=== PATIENT | male | born 1980 | race Caucasian/White ===

== ENCOUNTER 2016-12-01 12:01 | Emergency (ER) | payer MEDICAID ==
--- NOTE | 2016-12-01 12:16 | Emergency Department Record ---
History of Present Illness - General Chief complaint: Extremity Problem Stated complaint: TOE INJURY Time Seen by Provider: 12/01/16 12:15 Source: Patient Mode of Arrival: Ambulatory Limitations: No limitations - History of Present Illness Initial comments: The patient is here due to injuring his R foot last evening. He banged it against a pole last evening and now it is quite painful with walking and very bruised. He denies any other issues. MD Complaint: Extremity pain Onset/Timin -: Days(s) Location: Right, Foot History of Same: No Severity scale (1-10): 1 Quality: Sharp Consistency: Intermittent Improves with: Immobilization Worsens with: Exertion, Palpation, Walking, Weight bearing Associated Symptoms: Denies other symptoms - Related Data Previous Rx's Medication Instructions Recorded Naproxen [Naprosyn] 250 mg PO BID #14 tablet 12/01/16 Allergies Allergy/AdvReac Type Severity Reaction Status Date / Time No Known Drug Allergies Allergy Verified 12/01/16 12:13 Travel Screening - Travel/Exposure Within Last 30 Days Have you traveled within the last 30 days?: No Review of Systems Constitutional: Denies: Chills, Fever Eyes: Denies: Eye discharge ENT: Denies: Congestion Respiratory: Denies: Cough, Dyspnea Past Medical History - SOCIAL HISTORY Smoking Status: Current every day smoker Alcohol Use: Heavy Drug Use Detail:: Marijuana - RESPIRATORY Hx Respiratory Disorders: No - CARDIOVASCULAR Hx Cardio Disorders: No - NEURO Hx Neuro Disorders: No - GI Hx GI Disorders: No - Hx Genitourinary Disorders: No - ENDOCRINE Hx Endocrine Disorders: No - MUSCULOSKELETAL Hx Musculoskeletal Disorders: No - PSYCH Hx Psych Problems: Yes Hx Anxiety: Yes - HEMATOLOGY/ONCOLOGY Hx Hematology/Oncology Disorders: No Family Medical History Any Significant Family History?: Yes Hx Diabetes: Father Physical Exam - General General Appearance: Alert, Oriented x3, Cooperative, No acute distress - Head Head exam: Atraumatic, Normocephalic, Normal inspection - Eye Eye exam: Normal appearance, PERRL - Extremities Extremities exam: Tenderness (There is diffuse distal foot tenderness.). negative: Normal inspection (The distal dorsal foot is bruised and discolored.) , Joint swelling Course Vital Signs 12/01/16 12:07 Temperature 97.6 F Pulse Rate 114 H Respiratory 20 Rate Blood Pressure 143/102 Pulse Ox 96 Medical Decision Making - Data Complexity MDM Data: X-Ray Ordered and/or Reviewed - Radiology Data Radiology results: Report reviewed (R foot: Nondisplaced fx's of the 2nd, 4th, and 5th toes. Neg MT fx's.) Disposition Disposition: Discharge Clinical Impression: Toes fractured Disposition: Home, Self-Care Condition: (1) Good Instructions: Toe Fracture (ED) Additional Instructions: Please ice and elevate the toes when possible. Use the shoe for 2-3 weeks. Please take Naprosyn for pain. Please see your PCP next week for recheck. Prescriptions: Naproxen [Naprosyn] 250 mg PO BID #14 tablet Forms: Patient Portal Access Time of Disposition: 12:57
[2016-12-01] MEDS ORDERED: NAPROXEN 250 MG TABLET PO ONE (12:47)
--- NOTE | 2016-12-03 13:26 | RADIOLOGY REPORT ---
EXAM: RIGHT FOOT HISTORY: PATIENT FELL AND TWISTED THE RIGHT FOOT. PAIN, SWELLING, AND BRUISING AT THE THIRD THROUGH FIFTH TOES. TECHNIQUE: Three views of the right foot were obtained. Comparison: None. FINDINGS: There is a nondisplaced transverse fracture within the proximal shaft of the fifth proximal phalanx. There is a minimally displaced oblique fracture within the proximal shaft of the fourth proximal phalanx. There is a nondisplaced oblique fracture within the mid to proximal shaft of the second middle phalanx. There is possible extension to the proximal articular surface along the medial corner. A nondisplaced intraarticular fracture is present at the base of the second distal phalanx medially. This extends to the proximal articular surface. There is no visible discreet fracture within the third toe. There are mild arthritic changes at the first interphalangeal joint. The remaining bones and joints of the foot appear normal. IMPRESSION: 1. NONDISPLACED INTRAARTICULAR FRACTURE AT THE MEDIAL CORNER OF THE SECOND DISTAL PHALANGEAL BASE. 2. NONDISPLACED OBLIQUE FRACTURE WITHIN THE MID TO PROXIMAL SHAFT OF THE SECOND MIDDLE PHALANX WITH POSSIBLE EXTENSION TO THE PROXIMAL ARTICULAR SURFACE. 3. MINIMALLY DISPLACED OBLIQUE FRACTURE WITHIN THE PROXIMAL SHAFT OF THE FOURTH PROXIMAL PHALANX. 4. NONDISPLACED TRANSVERSE FRACTURE WITHIN THE PROXIMAL SHAFT OF THE FIFTH PROXIMAL PHALANX. JOB NUMBER: [id number] [facility]
== END 2016-12-01 13:10 | disposition home or self-care (01) ==
LOC: ER 12:01
DX: S92.504A Nondisplaced unspecified fracture of right lesser toe(s), initial encounter for closed fracture (principal); W22.8XXA Striking against or struck by other objects, initial encounter
CPT/HCPCS: 99283

== ENCOUNTER 2017-04-30 14:07 | Inpatient (IN) | payer MEDICAID ==
[2017-04-30] MEDS ORDERED: LORAZEPAM 2 MG/ML VIAL IV ONE ×2 (14:37→16:27)
[2017-04-30] MEDS ORDERED: 0.9 % SODIUM CHLORIDE 1,000 ML BAG IV ONE ×2 (14:37→15:29)
[2017-04-30 14:45] LABS: HEMATOCRIT 35.9 % (42.0-52.0); HEMOGLOBIN 12.1 gm/dl (14.0-18.0); MEAN CELL VOLUME 101.7 fl (81-97); MEAN CORPUSCULAR HGB CONC 33.7 g/dl (32-36); MEAN PLATELET VOLUME 10.6 fl (7.4-10.4); PLATELET COUNT 230 K/uL (130-400); RED BLOOD COUNT 3.53 M/uL (4.40-5.70); RED CELL DISTRIBUTION WIDTH 16.5 % (11.5-14.5); WHITE BLOOD COUNT W/O DIFF 10.9 K/uL (4.2-12.2)
[2017-04-30 14:48] LABS: MEAN CORPUSCULAR HEMOGLOBIN 34.2 pg (27-33)
[2017-04-30 14:56] LABS: PLATELET ESTIMATE NORMAL (NORMAL)
[2017-04-30 14:58] LABS: ALB/GLOB RATIO 1.2 (1.1-1.8); ALBUMIN 4.4 gm/dL (3.5-5.0); ALKALINE PHOSPHATASE 240 U/L (38-126); ALT/SGPT 24 U/L (21-72); ANION GAP 19.5 (7-16); AST/SGOT 97 U/L (17-59); BILIRUBIN,TOTAL 1.17 mg/dL (0.2-1.3); BLOOD UREA NITROGEN 4 mg/dL (9-20); CARBON DIOXIDE 16.5 mmol/L (22-30); CREATININE 0.7 mg/dL (0.66-1.25); EST GLOMERULAR FILTRATION RATE > 60 ml/min; GLUCOSE,RANDOM 145 mg/dL (70-110); TOTAL PROTEIN 8.2 gm/dL (6.3-8.2)
[2017-04-30 14:59] LABS: ACETAMINOPHEN < 10.0 ug/mL (10.0-30.0); SALICYLATE < 1.0 mg/dL (2.8-20.0)
--- NOTE | 2017-04-30 15:10 | Emergency Department Record ---
History of Present Illness - General Chief Complaint: Seizures Stated Complaint: SEIZURE,ALCOHOL W/D Time Seen by Provider: 04/30/17 14:36 Source: Patient, Family Mode of Arrival: Wheelchair Limitations: No limitations - History of Present Illness Initial Comments: 36 yo male presents after having two seizures today. He has a history of alcohol abuse with alcohol withdrawal and withdrawal seizures prior. He was admitted to [facility] recently. No injury. His first withdrawal seizure was in 2014. His mental status returned to normal. No other current medical conditions. He drinks daily 6-8 beers occasionally drinking liquor as well. Last drink was 10pm. MD Complaint: Seizure Onset/Timin -: Minutes(s) Description of Episode: Loss of consciousness, Post-event confusion Duration of Episode: 2 -: Minutes(s) Witnessed: Yes - by bystander Trauma: No Seizure History: History of withdrawal seizures Place: Home Possible Precipitating Event: Alcohol withdrawal Associated Symptoms: Other Treatments Prior to Arrival: None - [place] Coma Scale Eye Response: (4) Open spontaneously Motor Response: (6) Obeys commands Verbal Response: (5) Oriented [place] Total: 15 - Related Data Home Medications Medication Instructions Recorded Confirmed Last Taken No Home Med [NO HOME MEDS] 04/30/17 04/30/17 Unknown Allergies Allergy/AdvReac Type Severity Reaction Status Date / Time No Known Drug Allergies Allergy Verified 04/30/17 14:26 Travel Screening - Travel/Exposure Within Last 30 Days Have you traveled within the last 30 days?: No Review of Systems Constitutional: Denies: Chills, Fever, Weakness Eyes: Reports: Other. Denies: Eye discharge ENT: Reports: Other (tongue abrasion). Denies: Congestion, Throat pain Respiratory: Denies: Cough Cardiovascular: Denies: Chest pain, Palpitations, Syncope Endocrine: Denies: Fatigue Gastrointestinal: Denies: Abdominal pain, Diarrhea, Nausea, Vomiting Genitourinary: Denies: Dysuria, Frequency, Hematuria Musculoskeletal: Denies: Arthralgia, Back pain, Joint swelling, Myalgia Skin: Denies: Bruising, Change in color, Rash Neurological: Reports: Seizure. Denies: Confusion, Headache, Numbness, Tingling , Tremors, Vertigo, Weakness Psychiatric: Denies: Anxiety Hematological/Lymphatic: Denies: Blood Clots, Easy bleeding, Easy bruising, Swollen glands Past Medical History - SOCIAL HISTORY Smoking Status: Current every day smoker Alcohol Use: None, Heavy Drug Use: Heavy Drug Use Detail:: Marijuana - RESPIRATORY Hx Respiratory Disorders: No - CARDIOVASCULAR Hx Cardio Disorders: No - NEURO Hx Neuro Disorders: No - GI Hx GI Disorders: No - Hx Genitourinary Disorders: No - ENDOCRINE Hx Endocrine Disorders: No - MUSCULOSKELETAL Hx Musculoskeletal Disorders: No - PSYCH Hx Psych Problems: Yes Hx Anxiety: Yes Comment:: alcohol withdrawl/detox prior - HEMATOLOGY/ONCOLOGY Hx Hematology/Oncology Disorders: No Family Medical History Any Significant Family History?: No Hx Diabetes: Father Physical Exam - General General Appearance: Alert, Oriented x3, Cooperative, No acute distress Limitations: No limitations - Head Head exam: Atraumatic, Normocephalic, Normal inspection - Eye Eye exam: Normal appearance, PERRL. negative: Conjunctival injection, Periorbital swelling, Scleral icterus - ENT ENT exam: Normal exam, Mucous membranes moist, Normal orophraynx Ear exam: Normal external inspection. negative: External canal tenderness Nasal Exam: Normal inspection. negative: Discharge, Sinus tenderness Mouth exam: Other (small abrasion on the left). negative: Normal external inspection Teeth exam: Normal inspection. negative: Dental caries Throat exam: Normal inspection. negative: Tonsillar erythema, Tonsillar exudate - Neck Neck exam: Normal inspection, Full ROM. negative: Tenderness - Respiratory Respiratory exam: Normal lung sounds bilaterally. negative: Respiratory distress - Cardiovascular Cardiovascular Exam: Regular rate, Normal rhythm, Normal heart sounds Peripheral Pulses: 2+: Radial (R), Radial (L) - GI/Abdominal GI/Abdominal exam: Soft - Rectal Rectal exam: Deferred - exam: Deferred - Extremities Extremities exam: Normal inspection, Full ROM, Normal capillary refill. negative: Tenderness - Back Back exam: Reports: Normal inspection, Full ROM. Denies: Muscle spasm, Rash noted, Tenderness - Neurological Neurological exam: Alert, Normal gait, Oriented X3 - Psychiatric Psychiatric exam: Normal affect, Normal mood - Skin Skin exam: Dry, Intact, Normal color, Warm Course Vital Signs 04/30/17 04/30/17 14:16 14:59 Temperature 97.9 F Pulse Rate 110 H Pulse Rate [ 96 H [employer] ] Respiratory 20 16 Rate Blood Pressure 131/78 Blood Pressure 124/67 [Right Arm] Pulse Ox 96 96 - Reevaluation(s) Reevaluation #1: The labs were reviewed Midl decrease in HCO3 as expected after a seizure DC summary from [facility] obtained DC on 04/17/17 with recommendation of outpatient follow up 04/30/17 15:44 Reevaluation #2: I LIBRA Kendrick He will admit for alcohol withdrawal The patient is alert X's 3 no mental status changes Vitals stable for admission to [facility] on monitor with CIWA scale. 04/30/17 16:09 Medical Decision Making - Lab Data Result diagrams: 04/30/17 14:21 04/30/17 14:21 Lab Results 04/30/17 04/30/17 04/30/17 Range/Units 14:21 14:21 14:24 WBC 10.9 (4.2-12.2) K/uL RBC 3.53 L (4.40-5.70) M/uL Hgb 12.1 L (14.0-18.0) gm/dl Hct 35.9 L (42.0-52.0) % MCV 101.7 H (81-97) fl MCH 34.2 H (27-33) pg MCHC 33.7 (32-36) g/dl RDW 16.5 H (11.5-14.5) % Plt Count 230 (130-400) K/uL MPV 10.6 H (7.4-10.4) fl Neutrophils % 87.0 H (47-80) % Band Neutrophils % 2.0 (0-5) % Eosinophils % Not Reportable Basophils % Not Reportable Lymphocytes 9.0 L (16-45) % Monocytes 2.0 (0-9) % Platelet Estimate Normal (NORMAL) RBC Morphology Normal Sodium 141 (136-145) mmol/L Potassium 3.7 (3.5-5.1) mmol/L Chloride 105 (98-107) mmol/L Carbon Dioxide 16.5 L (22-30) mmol/L Anion Gap 19.5 H (7-16) BUN 4 L (9-20) mg/dL Creatinine 0.7 (0.66-1.25) mg/dL Estimated GFR > 60 ml/min Random Glucose 145 H (70-110) mg/dL Calcium 9.1 (8.5-10.1) mg/dL Magnesium 1.6 (1.6-2.3) mg/dL Total Bilirubin 1.17 (0.2-1.3) mg/dL AST 97 H (17-59) U/L ALT 24 (21-72) U/L Alkaline Phosphatase 240 H (38-126) U/L Total Protein 8.2 (6.3-8.2) gm/dL Albumin 4.4 (3.5-5.0) gm/dL Globulin 3.8 (1.4-4.8) gm/dL Albumin/Globulin Ratio 1.2 (1.1-1.8) Salicylates < 1.0 L (2.8-20.0) mg/dL Acetaminophen < 10.0 L (10.0-30.0) ug/mL Ethyl Alcohol 0.000 (0-0.010) g/dL Disposition Disposition: Admit Clinical Impression: Alcohol withdrawal seizure Qualifiers: Complication of substance-induced condition: uncomplicated Qualified Code(s): F10.230 - Alcohol dependence with withdrawal, uncomplicated Disposition: Still a Patient at [facility] Decision to Admit: Admit from ER Decision to Admit Date: 04/30/17 Decision to Admit Time: 16:05 Condition: (1) Good Forms: Patient Portal Access Time of Disposition: 16:05
[2017-04-30 15:37] LABS: AMPHETAMINE SCREEN URINE NOT DETECTED; BARBITURATE SCREEN URINE NOT DETECTED; BENZODIAZEPINE SCREEN URINE DETECTED; COCAINE SCREEN URINE NOT DETECTED; METHADONE SCREEN URINE NOT DETECTED; METHAMPHETAMINE SCREEN NOT DETECTED; OPIATE SCREEN URINE NOT DETECTED; OXYCODONE SCREEN URINE NOT DETECTED; PHENCYCLIDINE SCREEN URINE NOT DETECTED; PROPOXYPHENE SCREEN URINE NOT DETECTED; THC SCREEN URINE DETECTED; TRICYCLIC ANTIDEPRESSANT SCRN NOT DETECTED
[2017-04-30] MEDS ORDERED: ACETAMINOPHEN 500 MG TABLET PO PRN (17:14)
[2017-04-30] MEDS ORDERED: MVI, ADULT NO.4 WITH VIT K 10 ML, THIAMINE HCL IV 100 MG in 0.9 % SODIUM CHLORIDE 1000M... IV SCH ×3 (17:45)
[2017-04-30] MEDS ORDERED: CHLORDIAZEPOXIDE 25 MG CAPSULE PO ONE (18:34)
[2017-04-30] MEDS: NICOTINE 21 MG/24 HOUR PATCH TD SCH (18:51)
[2017-04-30] MEDS: CHLORDIAZEPOXIDE 25 MG CAPSULE PO SCH (21:59)
[2017-05-01] MEDS: 0.9 % SODIUM CHLORIDE 1000ML 1,000 ML IV PRN ×2 (01:35→10:04)
[2017-05-01 05:54] LABS: BASO % 0.2 % (0-6); EOS % 3.6 % (0-6); GRAN % 69.1 % (47-80); HEMATOCRIT 33.2 % (42.0-52.0); HEMOGLOBIN 10.9 gm/dl (14.0-18.0); LYMPH % 18.8 % (16-45); MEAN CELL VOLUME 103.4 fl (81-97); MEAN CORPUSCULAR HGB CONC 32.8 g/dl (32-36); MONO % 8.3 % (0-9); PLATELET COUNT 172 K/uL (130-400); RED BLOOD COUNT 3.21 M/uL (4.40-5.70); RED CELL DISTRIBUTION WIDTH 16.3 % (11.5-14.5); WHITE BLOOD COUNT W/O DIFF 5.3 K/uL (4.2-12.2)
[2017-05-01 05:55] LABS: MEAN CORPUSCULAR HEMOGLOBIN 33.9 pg (27-33)
[2017-05-01] MEDS: LORAZEPAM 2 MG/ML VIAL IV PRN ×2 (05:57→13:32)
[2017-05-01 06:04] LABS: INR 1.11; PROTHROMBIN TIME (PATIENT) 12.5 SECONDS (9.5-12.1)
[2017-05-01 06:06] LABS: ALB/GLOB RATIO 1.1 (1.1-1.8); ALBUMIN 3.5 gm/dL (3.5-5.0); ALKALINE PHOSPHATASE 173 U/L (38-126); ALT/SGPT 28 U/L (21-72); ANION GAP 10.7 (7-16); AST/SGOT 70 U/L (17-59); BILIRUBIN,TOTAL 1.43 mg/dL (0.2-1.3); BLOOD UREA NITROGEN 6 mg/dL (9-20); CARBON DIOXIDE 22.3 mmol/L (22-30); CREATININE 0.7 mg/dL (0.66-1.25); EST GLOMERULAR FILTRATION RATE > 60 ml/min; GLUCOSE,RANDOM 84 mg/dL (70-110); TOTAL PROTEIN 6.8 gm/dL (6.3-8.2)
[2017-05-01 06:33] LABS: ALBUMIN 3.6 gm/dL (3.5-5.0); BILIRUBIN,TOTAL 1.45 mg/dL (0.2-1.3); TOTAL PROTEIN 6.8 gm/dL (6.3-8.2)
[2017-05-01] MEDS ORDERED: POTASSIUM CHLORIDE 20 MEQ TABLET PO ONE (07:28)
[2017-05-01] MEDS: CHLORDIAZEPOXIDE 25 MG CAPSULE PO SCH ×3 (09:55→21:44)
[2017-05-01] MEDS: THIAMINE MONONITRATE 100 MG TABLET PO SCH (09:56)
[2017-05-01] MEDS: NICOTINE 21 MG/24 HOUR PATCH TD SCH (09:56)
[2017-05-01] MEDS: ENOXAPARIN 40 MG/0.4 ML SYR SQ SCH (09:56)
--- NOTE | 2017-05-01 12:37 | History and Physical Report ---
CHIEF COMPLAINT: Alcohol withdrawal seizures and alcohol withdrawal and hallucinations. HISTORY OF PRESENT ILLNESS: This 36-year-old male states that his last drink was at 10 p.m. last night and he came into the emergency department after his second seizure at home. He had a seizure at 11:30 a.m. and about 1:30 a.m. and his last drink of alcohol was 10 p.m. last night. He had his first alcohol withdrawal seizure in the year 2014. No other current medical problems according to his girlfriend/fiancee, Lilo, who was at the bedside giving me his history. PAST MEDICAL HISTORY: Negative. PAST SURGICAL HISTORY: Facial surgery. MEDICATIONS ON ADMISSION: None. ALLERGIES: None. FAMILY/PSYCHOSOCIAL HISTORY: He does use marijuana heavy and also alcohol heavy. Current everyday smoker, cigarettes, one pack a day. Father has diabetes. The seizures that he had lasted 2 minutes approximately. He usually drinks about a fifth or day or 8 beers a day, maybe a little bit of both. REVIEW OF SYSTEMS: HEENT: No upper respiratory infection symptoms, cough, cold, or congestion. Cardiovascular: No chest pain, palpitation, or arrhythmias. Respiratory: No cough, cold, or congestion. Gastrointestinal: No nausea, vomiting, diarrhea. Genitourinary: No dysuria, hematuria, frequency, or burning on urination. Musculoskeletal: He is tremulous all over. No problems moving his arms and legs. No arthritis. Neurological: See chief complaint. He is tremulous. He is hallucinating. He is diaphoretic. No history of strokes, paralysis, or paresthesias. He has had multiple history of alcohol withdrawal and as a matter of fact, he was just released from [facility] about 1 week ago. Went through the same thing and he told his girlfriend, Lilo, he wanted to stop drinking again. Endocrine: No diabetes or thyroid disease. Integument: No rash, ulcerative change in moles, or yellow skin. PHYSICAL EXAMINATION: VITAL SIGNS: Height is 5 feet 10 inches, weight 170 pounds. Temperature 98.8, pulse 91, blood pressure 118/72, respiratory rate 18, pulse ox 97% on room air. HEENT: Pupils are equal, round, and reactive to light and accommodation. Extraocular movements are intact. Throat is clear. Nose is clear. Tympanic membranes eng. NECK: Supple. No jugular venous distention. No hepatojugular reflux. No carotid bruits. Thyroid is smooth. CARDIOVASCULAR: Regular rate and rhythm without murmurs, clicks, rubs, or gallops. He is slightly tachycardic at this time, around 105. RESPIRATORY: Clear to auscultation and percussion. ABDOMEN: Soft, nontender. No hepatosplenomegaly. No masses. No tenderness. Bowel sounds active. No bruits. EXTREMITIES: No pitting edema. No cyanosis. No clubbing. Full range of motion. Peripheral pulses good. BREASTS: normal male breasts. RECTAL: Deferred. GENITALIA: Deferred. NEUROLOGIC: Cranial nerves II-XII intact. No gross defects. Sensation normal. Strength normal. Deep tendon reflexes equal bilaterally; however, Babinski is negative. He is tremulous and he is hallucinating both auditory and visual hallucinations. MENTAL STATUS: He is alert, disoriented to time and place but not person. IMPRESSION: 1. Alcohol withdrawal. 2. Alcohol withdrawal seizures. 3. Delirium tremens. PLAN: Librium 50 mg p.o. now, then 25 t.i.d. Ativan 1 mg IV p.r.n. Thiamine IV banana bag x1 liter and then follow with normal saline. Oral thiamine. CIWA scale every 4 hours. MTDD
[2017-05-02] MEDS: LORAZEPAM 2 MG/ML VIAL IV PRN ×2 (01:49→05:23)
[2017-05-02 06:23] LABS: ANION GAP 8.2 (7-16); BLOOD UREA NITROGEN 4 mg/dL (9-20); CARBON DIOXIDE 22.8 mmol/L (22-30); CREATININE 0.6 mg/dL (0.66-1.25); EST GLOMERULAR FILTRATION RATE > 60 ml/min; GLUCOSE,RANDOM 99 mg/dL (70-110)
[2017-05-02] MEDS ORDERED: 0.9 % SODIUM CHLORIDE 1000ML 1,000 ML IV ONE (08:49)
[2017-05-02] MEDS: NICOTINE 21 MG/24 HOUR PATCH TD SCH (09:56)
[2017-05-02] MEDS: ENOXAPARIN 40 MG/0.4 ML SYR SQ SCH (09:56)
[2017-05-02] MEDS: THIAMINE MONONITRATE 100 MG TABLET PO SCH (09:56)
[2017-05-02] MEDS ORDERED: MULTIVITAMINS/MINERALS TABLET PO SCH (10:00)
[2017-05-02] MEDS ORDERED: CHLORDIAZEPOXIDE 10 MG CAPSULE PO SCH (10:00)
--- NOTE | 2017-05-04 11:40 | Discharge Note ---
VTE H&P Assessment - Risk for VTE Risk for VTE: Yes Risk Level: Low Risk Assessment Date: 05/01/17 Risk Assessment Time: 10:00 VTE Orders Placed or Will Be Placed: Yes Discharge Medications - Discharge Medications Prescriptions: Chlordiazepoxide HCl [Librium] 10 mg PO TID #18 cap Magnesium Oxide [Mag Ox] 400 mg PO DAILY #30 tab Multivitamin [Multiple Vitamins] 1 each PO DAILY #30 tablet Thiamine Mononitrate [Vitamin B-1] 100 mg PO DAILY #30 tablet Home Medications: Ambulatory Orders Chlordiazepoxide HCl [Librium] 10 mg PO TID #18 cap 05/04/17 [Last Taken Unknown ] Magnesium Oxide [Mag Ox] 400 mg PO DAILY #30 tab 05/04/17 [Last Taken Unknown] Multivitamin [Multiple Vitamins] 1 each PO DAILY #30 tablet 05/04/17 [Last Taken Unknown] Thiamine Mononitrate [Vitamin B-1] 100 mg PO DAILY #30 tablet 05/04/17 [Last Taken Unknown] Discharge Note - Date Date of Discharge Note: 05/04/17 Disposition: Against Medical Advice Condition: (1) Good Instructions: How to Stop Smoking (DC), Alcohol Withdrawal (DC), New Onset Absence Seizures in Adults (DC) Additional Instructions: 2 Activity: TOLERATED 2 Diet: TOLERATED 2 Consults: [] 2 Follow Up: []WITH FAMILY DOCTOR NEDDED 2 Dressing/Wound Care: (Type) (Change) 2 Additional: [] STOP DRINKING ALCOHOL STOP SMOKING ATTEND AA MEETINGS, No driving a car for 6 [address] up [address]. Kendrick in 2 weeks take mag ox once a day because mag is low. Prescriptions: Chlordiazepoxide HCl [Librium] 10 mg PO TID #18 cap Magnesium Oxide [Mag Ox] 400 mg PO DAILY #30 tab Multivitamin [Multiple Vitamins] 1 each PO DAILY #30 tablet Thiamine Mononitrate [Vitamin B-1] 100 mg PO DAILY #30 tablet Forms: Patient Portal Access Activity at Discharge: Increase Activity as Tolerated
== END 2017-05-02 10:40 | disposition left against medical advice (07) | DRG 894 ==
LOC: ER 14:07 → MEDSURG 16:56
PROVIDERS: ADMIT Emergency Medicine; ATTEND Emergency Medicine
DX: F10.251 Alcohol dependence with alcohol-induced psychotic disorder with hallucinations (principal); G40.509 Epileptic seizures related to external causes, not intractable, without status epilepticus; F10.231 Alcohol dependence with withdrawal delirium; F12.90 Cannabis use, unspecified, uncomplicated; F17.200 Nicotine dependence, unspecified, uncomplicated
CPT/HCPCS: 80048; 80053; 80076; 80305; 80320; 80329; 83735; 85025; 85027; 85610; 96361; 96374; 96376; 99223; 99233; 99239; 99285; J1650; J3411; J7030

== ENCOUNTER 2017-05-02 11:44 | Inpatient (IN) | payer MEDICAID ==
--- NOTE | 2017-05-02 11:59 | Emergency Department Record ---
History of Present Illness - General Chief Complaint: Detox Evaluation Stated Complaint: COLLAPSED Time Seen by Provider: 05/02/17 11:53 Source: Patient, Family Mode of Arrival: Ambulatory Limitations: No limitations - History of Present Illness Initial Comments: 36 yo male presents after signing out AMA from the inpatient [facility]. He was admitted for alcohol abuse with withdrawal. He went home and his significant other was not informed. She insisted he return, apologize and continue his care. The patient wishes to continue his care. No seizure since DC. He does feel weak. He is currently alert without confusion or hallucinations. MD Complaint: Other (Collapsed) -: Hour(s) (1) Associated Psychiatric Symptoms: None History of same: Yes Quality: Constant Improves With: Medication Worsens With: Other (alcohol) Associated Symptoms: Other (mild weakness) Treatments Prior to Arrival: None - [place] Coma Scale Eye Response: (4) Open spontaneously Motor Response: (6) Obeys commands Verbal Response: (5) Oriented [place] Total: 15 - Related Data Home Medications Medication Instructions Recorded Confirmed Last Taken No Home Med [NO HOME MEDS] 04/30/17 05/02/17 Unknown Allergies Allergy/AdvReac Type Severity Reaction Status Date / Time No Known Drug Allergies Allergy Verified 05/02/17 11:47 Review of Systems Constitutional: Reports: Weakness. Denies: Chills, Fever, Weight change Eyes: Denies: Eye discharge, Photophobia, Vision change ENT: Denies: Congestion, Ear pain, Epistaxis Respiratory: Denies: Cough, Dyspnea, Hemoptysis Cardiovascular: Denies: Chest pain, Palpitations, Syncope Endocrine: Denies: Fatigue Gastrointestinal: Denies: Abdominal pain, Diarrhea, Nausea, Vomiting Genitourinary: Denies: Dysuria, Frequency, Hematuria Musculoskeletal: Denies: Arthralgia, Back pain, Myalgia, Neck pain Skin: Denies: Bruising, Change in color, Rash Neurological: Reports: Weakness. Denies: Headache Psychiatric: Denies: Anxiety Hematological/Lymphatic: Denies: Blood Clots, Easy bleeding, Easy bruising, Swollen glands Past Medical History - SOCIAL HISTORY Smoking Status: Current every day smoker Alcohol Use Comment: 1/2 gallon of vodka per day for 13 weeks Drug Use: Heavy Drug Use Detail:: Marijuana - RESPIRATORY Hx Respiratory Disorders: No - CARDIOVASCULAR Hx Cardio Disorders: No - NEURO Hx Neuro Disorders: No - GI Hx GI Disorders: Yes Hx Reflux: Yes - Hx Genitourinary Disorders: No - ENDOCRINE Hx Endocrine Disorders: No - MUSCULOSKELETAL Hx Musculoskeletal Disorders: Yes Hx Back Injury: Yes - PSYCH Hx Psych Problems: Yes Hx Anxiety: Yes Comment:: alcohol withdrawl/detox prior - HEMATOLOGY/ONCOLOGY Hx Hematology/Oncology Disorders: No Family Medical History Hx Cancer: Grandparents *Cancer Comment: ALS Hx Diabetes: Father Physical Exam - General General Appearance: Alert, Oriented x3, Cooperative, No acute distress Limitations: No limitations - Head Head exam: Atraumatic, Normocephalic, Normal inspection - Eye Eye exam: Normal appearance, PERRL. negative: Conjunctival injection, Periorbital swelling - ENT ENT exam: Normal exam Ear exam: Normal external inspection Nasal Exam: Normal inspection Mouth exam: Normal external inspection - Neck Neck exam: Normal inspection, Full ROM. negative: Tenderness - Respiratory Respiratory exam: Normal lung sounds bilaterally. negative: Respiratory distress - Cardiovascular Cardiovascular Exam: Regular rate, Normal rhythm, Normal heart sounds - GI/Abdominal GI/Abdominal exam: Soft. negative: Tenderness - Rectal Rectal exam: Deferred - exam: Deferred - Extremities Extremities exam: Normal inspection, Full ROM, Normal capillary refill. negative: Tenderness - Back Back exam: Reports: Normal inspection, Full ROM. Denies: Muscle spasm, Rash noted, Tenderness - Neurological Neurological exam: Alert, CN II-XII intact, Normal gait, Oriented X3, Reflexes normal, Other (mild tremor). negative: Altered, Motor sensory deficit - Psychiatric Psychiatric exam: Normal affect, Normal mood - Skin Skin exam: Dry, Intact, Normal color, Warm Course - Reevaluation(s) Reevaluation #1: I SW Dr Kendrick He accepts the patient back for treatment 05/02/17 12:04 Disposition Disposition: Admit Clinical Impression: Alcohol withdrawal Qualifiers: Complication of substance-induced condition: with unspecified complication Qualified Code(s): F10.239 - Alcohol dependence with withdrawal, unspecified Disposition: Still a Patient at [facility] Return To Work/School Note Provided: No Decision to Admit: Admit from ER Decision to Admit Date: 05/02/17 Decision to Admit Time: 12:05 Condition: (2) Stable Time of Disposition: 12:05 Quality - Quality Measures Quality Measures: N/A - Blood Pressure Screening View Details: Yes Blood Pressure Classification: Pre-Hypertensive BP Reading Systolic Measurement: 131 Diastolic Measurement: 87 Screening for High Blood Pressure: < Pre-Hypertensive BP, F/U Documented > [ [id number]] Pre-Hypertensive Follow-up Interventions: Referral to alternative/primary care provider.
[2017-05-02] MEDS ORDERED: LORAZEPAM 2 MG/ML VIAL IV ONE (12:03)
[2017-05-02] MEDS: CHLORDIAZEPOXIDE 10 MG CAPSULE PO SCH ×2 (17:18→21:41)
[2017-05-02] MEDS: NICOTINE 21 MG/24 HOUR PATCH TD SCH (17:25)
[2017-05-02] MEDS: LORAZEPAM 2 MG/ML VIAL IV PRN ×2 (18:55→22:47)
[2017-05-03] MEDS: LORAZEPAM 2 MG/ML VIAL IV PRN ×2 (04:07→06:30)
[2017-05-03 05:53] LABS: BASO % 0.2 % (0-6); EOS % 4.3 % (0-6); GRAN % 64.6 % (47-80); HEMATOCRIT 31.9 % (42.0-52.0); HEMOGLOBIN 10.6 gm/dl (14.0-18.0); LYMPH % 22.7 % (16-45); MEAN CELL VOLUME 102.9 fl (81-97); MEAN CORPUSCULAR HEMOGLOBIN 34.1 pg (27-33); MEAN CORPUSCULAR HGB CONC 33.2 g/dl (32-36); MEAN PLATELET VOLUME 10.3 fl (7.4-10.4); MONO % 8.2 % (0-9); PLATELET COUNT 168 K/uL (130-400); RED CELL DISTRIBUTION WIDTH 16.4 % (11.5-14.5); WHITE BLOOD COUNT W/O DIFF 4.4 K/uL (4.2-12.2)
[2017-05-03 06:03] LABS: ANION GAP 10.8 (7-16); BLOOD UREA NITROGEN 7 mg/dL (9-20); CARBON DIOXIDE 22.2 mmol/L (22-30); CREATININE 0.6 mg/dL (0.66-1.25); EST GLOMERULAR FILTRATION RATE > 60 ml/min; GLUCOSE,RANDOM 101 mg/dL (70-110)
[2017-05-03] MEDS ORDERED: LORAZEPAM 2 MG/ML VIAL IV PRN ×2 (06:45→06:59)
[2017-05-03] MEDS: MAGNESIUM OXIDE 400 MG TABLET PO SCH (09:52)
[2017-05-03] MEDS: CHLORDIAZEPOXIDE 10 MG CAPSULE PO SCH ×3 (09:53→22:07)
[2017-05-03] MEDS: NICOTINE 21 MG/24 HOUR PATCH TD SCH (18:22)
[2017-05-04] MEDS: MAGNESIUM OXIDE 400 MG TABLET PO SCH (09:50)
[2017-05-04] MEDS ORDERED: CHLORDIAZEPOXIDE 10 MG CAPSULE PO SCH (10:00)
--- NOTE | 2017-05-04 11:44 | Discharge Note ---
VTE H&P Assessment - Risk for VTE Risk for VTE: Yes Risk Level: Low Risk Assessment Date: 05/01/17 Risk Assessment Time: 10:00 VTE Orders Placed or Will Be Placed: Yes Discharge Medications - Discharge Medications Home Medications: Ambulatory Orders Chlordiazepoxide HCl [Librium] 10 mg PO TID #18 cap 05/04/17 [Last Taken Unknown ] Magnesium Oxide [Mag Ox] 400 mg PO DAILY #30 tab 05/04/17 [Last Taken Unknown] Multivitamin [Multiple Vitamins] 1 each PO DAILY #30 tablet 05/04/17 [Last Taken Unknown] Thiamine Mononitrate [Vitamin B-1] 100 mg PO DAILY #30 tablet 05/04/17 [Last Taken Unknown] Discharge Note - Date Date of Discharge Note: 05/04/17 Condition: (2) Stable Additional Instructions: see discharge on previous chart Forms: Patient Portal Access Activity at Discharge: Increase Activity as Tolerated
--- NOTE | 2017-05-04 16:20 | Discharge Summary ---
DATE OF ADMISSION: 05/02/2017 DATE OF DISCHARGE: 05/04/2017 DISCHARGE DIAGNOSES: 1. Alcohol withdrawal. 2. Seizure secondary to alcohol withdrawal. 3. Alcoholism. 4. Hypomagnesemia. 5. Delirium tremens. ATTENDING PHYSICIAN: Larry Kendrick DO REASON FOR HOSPITALIZATION: This 36-year-old male presented to the Emergency Department after having a seizure at home. His last drink was at 10 p.m. the night before he came in here. He was seen in the Emergency Department by Dr. Burden and admitted to the hospital for alcohol withdrawal, alcohol withdrawal seizures, and alcoholism, delirium tremens. The second day he was in this hospital he left AMA. Came back because his girlfriend said she would leave him if he did not finish the treatment program. He came back to the hospital and was admitted to the hospital the same day, basically 1 hour apart or 2 hours apart. Seen again in the Emergency Department a second time and put back on the floor for further care. SIGNIFICANT FINDINGS FROM EXAMINATION: His laboratory work showed a WBC of 10,900. Hemoglobin was 12.1. His magnesium was low at 1.5. He was given Mag-Ox. His potassium dropped down to 3.2, came back up to 3.9, then the last set of vitals, his BUN was 7. Creatinine 0.6. His sodium was 140. His urine drug screen in the Emergency Department was positive for marijuana, benzo, his alcohol level was 0. Patient drinks either a fifth a day or 8 beers a day. THERAPY PROVIDED: Patient was given IV Ativan, oral Librium. He was auditory and verbally hallucinating the first day of the hospitalization, and when he came back, he had mostly just tremors, sweats, and anxiety for the rest of the hospitalization. He was titrated back on his Librium to 10 mg 3 times a day on the day of discharge. Actually, we were going to go to twice a day, but he still is a little bit shaky and sweaty. I will keep him at 3 times a day for 3 days, go to 2 times a day for 3 days, and then 1 time a day for 3 days. He was given IV fluids and made a saline lock. He is eating and drinking. Walking around the room. HOSPITAL COURSE: Much improved. CONDITION AT DISCHARGE: Much improved. DISCHARGE INSTRUCTIONS: Follow up with Dr. Kendrick in 2 weeks. Follow up with AA in the next week, or to follow up an outpatient substance abuse program for alcoholism. Phone numbers were given to the patient. He was instructed not to drink alcohol. No driving for 6 months. Follow up with me if he is having more problems and to take Mag-Ox 400 mg once a day. The Librium as stated will be 10 mg pills 3 times a day for 3 days, then 2 times a day for 3 days, then 1 time a day for 3 days, and then also thiamin 100 mg daily, multiple vitamins 1 daily. MTDD
== END 2017-05-04 12:40 | disposition home or self-care (01) | DRG 897 ==
LOC: ER 11:44 → MEDSURG 12:42
PROVIDERS: ADMIT Emergency Medicine; ATTEND Emergency Medicine
DX: F10.251 Alcohol dependence with alcohol-induced psychotic disorder with hallucinations (principal); F10.232 Alcohol dependence with withdrawal with perceptual disturbance; F12.90 Cannabis use, unspecified, uncomplicated; E83.42 Hypomagnesemia
CPT/HCPCS: 80048; 83735; 85025; 96374; 99233; 99239; 99285

== ENCOUNTER 2017-08-17 05:06 | Emergency (ER) | payer MEDICAID ==
--- NOTE | 2017-08-18 08:59 | RADIOLOGY REPORT ---
EXAM: CHEST, TWO VIEWS HISTORY: COUGH AND DIFFICULTY IN BREATHING. TECHNIQUE: PA and lateral views of the chest were obtained. Comparison: None. FINDINGS: The heart size is normal. Small nodule right base laterally is likely a small granuloma. Old films would be useful to confirm. No definite acute infiltrate is seen. No pleural effusion or pneumothorax evident. Slight relative offset at the right acromioclavicular joint may just be projectional. Correlation with point tenderness suggested. IMPRESSION: 1. NO ACUTE INFILTRATE EVIDENT. 2. SMALL NODULE LATERALLY RIGHT LOWER LUNG IS PRESUMABLY A SMALL GRANULOMA. OLD FILMS COULD CONFIRM. 3. MILD OFFSET RIGHT ACROMIOCLAVICULAR JOINT MAY JUST BE PROJECTIONAL. CORRELATION WITH POINT TENDERNESS SUGGESTED. JOB NUMBER: [id number] MTDD
== END 2017-08-17 06:30 | disposition home or self-care (01) ==
LOC: ER 05:06
DX: J45.909 Unspecified asthma, uncomplicated (principal); R06.02 Shortness of breath; F17.210 Nicotine dependence, cigarettes, uncomplicated
CPT/HCPCS: 71020; 94640; 99283

== ENCOUNTER 2019-01-17 12:02 | Emergency (ER) | payer SELFPAY ==
[2019-01-17] MEDS ORDERED: ACETAMINOPHEN 325 MG TAB PO ONE (12:47)
--- NOTE | 2019-01-17 12:49 | Emergency Department Record ---
History of Present Illness - General Chief Complaint: Laceration(s) Stated Complaint: HEAD LACERATION Time Seen by Provider: 01/17/19 12:13 Source: Patient Mode of Arrival: Ambulatory Limitations: No limitations - History of Present Illness Initial Commments: The patient accidentally cut the top of his head about an hour and a half ago. He stood up and hit his head with a glancing blow over the superior L parietal area and suffered a small laceration. There was no LOC and he only has a mild MURCIA now. The patient denies any nausea, vomiting, visual changes, neck pain or balance issues. His Td is UTD. Onset/Timin -: Hour(s) Location: Scalp Place: Home Context: Accidental Associated Symptoms: None - [place] Coma Scale Eye Response: (4) Open spontaneously - Related Data Hx Tetanus Toxoid Vaccination: Yes Patient Tetanus UTD (within 5 yrs): Yes Home Medications Medication Instructions Recorded Confirmed Last Taken Sertraline HCl [Zoloft] 100 mg PO DAILY 01/17/19 01/17/19 Unknown Allergies Allergy/AdvReac Type Severity Reaction Status Date / Time No Known Drug Allergies Allergy Verified 05/02/17 11:47 Travel Screening - Travel/Exposure Within Last 30 Days Have you traveled within the last 30 days?: No Review of Systems Constitutional: Denies: Chills, Fever Eyes: Denies: Eye discharge ENT: Denies: Congestion Respiratory: Denies: Cough, Dyspnea Past Medical History - SOCIAL HISTORY Smoking Status: Current every day smoker Alcohol Use: None Drug Use: Occasional Drug Use Detail:: Marijuana - RESPIRATORY Hx Respiratory Disorders: No - CARDIOVASCULAR Hx Cardio Disorders: No - NEURO Hx Neuro Disorders: No Comment:: siezure with detox - GI Hx GI Disorders: Yes Hx Reflux: Yes - Hx Genitourinary Disorders: No - ENDOCRINE Hx Endocrine Disorders: No - MUSCULOSKELETAL Hx Musculoskeletal Disorders: Yes Hx Back Injury: Yes - PSYCH Hx Psych Problems: Yes Hx Anxiety: Yes Comment:: alcohol withdrawl/detox prior - HEMATOLOGY/ONCOLOGY Hx Hematology/Oncology Disorders: No Family Medical History Any Significant Family History?: Yes Hx Cancer: Grandparents *Cancer Comment: ALS Hx Diabetes: Father Physical Exam - General General Appearance: Alert, Oriented x3, Cooperative, No acute distress - Head Head exam: Normocephalic. negative: Atraumatic, Normal inspection (There is a superficial 1.5 cm lac to the L superior parietal area. There is no swelling, or bony tenderness.) - Eye Eye exam: Normal appearance, PERRL, EOMI - ENT ENT exam: TM's normal bilaterally Throat exam: Normal inspection. negative: Tonsillar erythema, Tonsillar exudate - Neck Neck exam: Normal inspection, Full ROM. negative: Tenderness - Respiratory Respiratory exam: Normal lung sounds bilaterally. negative: Respiratory distress - Cardiovascular Cardiovascular Exam: Regular rate, Normal rhythm, Normal heart sounds - Neurological Neurological exam: Alert, Normal gait, Oriented X3, Other (Neg Drift and [place].). negative: Abnormal gait, Altered, Motor sensory deficit Course Vital Signs 01/17/19 12:14 Temperature 97.9 F Pulse Rate 75 Respiratory 18 Rate Blood Pressure 125/85 Pulse Ox 98 - Reevaluation(s) Reevaluation #1: Procedure note: The scalp lac was anesth. with Lido 1% with Epi. The wound was prepped with betadine and lavaged with sterile saline. The lac was then closed with 4 marcello. There were no complications. 01/17/19 13:07 Reevaluation #2: The patient is doing very well at this time. He denies any MURCIA or head pain, nausea, vomiting, or balance issues. He is up walking normally and is ready for home. 01/17/19 13:59 Disposition Disposition: Discharge Clinical Impression: Laceration of head Qualifiers: Encounter type: initial encounter Location of open wound of head: unspecified part of head Foreign body presence: without foreign body Qualified Code(s): S01.91XA - Laceration without foreign body of unspecified part of head, initial encounter Disposition: Home, Self-Care Condition: (2) Stable Instructions: Laceration (ED), Head Injury (ED) Additional Instructions: Please use Tylenol or Motrin for pain. Please keep your laceration dry for 2 days then wash daily. Have the sutures removed in 10 days. Return to the ER for any problems. Forms: Patient Portal Access Time of Disposition: 13:58 Quality - Quality Measures Quality Measures: N/A - Blood Pressure Screening View Details: Yes Does Patient Have Any of the Following: No Blood Pressure Classification: Pre-Hypertensive BP Reading Systolic Measurement: 125 Diastolic Measurement: 85 Screening for High Blood Pressure: < Pre-Hypertensive BP, F/U Documented > [ G8950] Pre-Hypertensive Follow-up Interventions: Referral to alternative/primary care provider.
== END 2019-01-17 14:11 | disposition home or self-care (01) ==
LOC: ER 12:02
DX: S01.01XA Laceration without foreign body of scalp, initial encounter (principal); R51 Headache; W22.8XXA Striking against or struck by other objects, initial encounter; Y92.009 Unspecified place in unspecified non-institutional (private) residence as the place of occurrence of the external cause
CPT/HCPCS: 12001; 99283

== ENCOUNTER 2019-01-28 16:50 | Emergency (ER) | payer SELFPAY ==
--- NOTE | 2019-01-28 16:56 | Emergency Department Record ---
History of Present Illness - General Chief Complaint: Suture removal Stated Complaint: REMOVE GODFREY Time Seen by Provider: 01/28/19 16:56 Source: Patient, RN notes reviewed - History of Present Illness Initial Comments: scalp laceration healing nicely without signs of infection Complaint: Suture/staple removal - Related Data Allergies Allergy/AdvReac Type Severity Reaction Status Date / Time No Known Drug Allergies Allergy Verified 05/02/17 11:47 Review of Systems Reviewed: No additional complaints except as noted below Constitutional: Reports: As per HPI. Denies: Chills, Fever, Malaise, Night sweats, Weakness, Weight change Eyes: Reports: As per HPI. Denies: Eye discharge, Eye pain, Photophobia, Vision change ENT: Reports: As per HPI. Denies: Congestion, Dental pain, Ear pain, Epistaxis , Hearing loss, Throat pain Respiratory: Reports: As per HPI. Denies: Cough, Dyspnea, Hemoptysis, Stridor, Wheezes Cardiovascular: Reports: As per HPI. Denies: Arrhythmia, Chest pain, Dyspnea on exertion, Edema, Murmurs, Orthopnea, Palpitations, Paroxysmal nocturnal dyspnea, Rheumatic Fever, Syncope Endocrine: Reports: As per HPI. Denies: Fatigue, Heat or cold intolerance, Polydipsia, Polyuria Gastrointestinal: Reports: As per HPI. Denies: Abdominal pain, Constipation, Diarrhea, Hematemesis, Hematochezia, Melena, Nausea, Vomiting Genitourinary: Reports: As per HPI. Denies: Dysuria, Frequency, Hematuria, Incontinence, Retention, Testicular pain, Testicular mass, Urgency Musculoskeletal: Reports: As per HPI. Denies: Arthralgia, Back pain, Gout, Joint swelling, Myalgia, Neck pain Skin: Reports: As per HPI. Denies: Bruising, Change in color, Change in hair/ nails, Lesions, Pruritus, Rash Neurological: Reports: As per HPI. Denies: Abnormal gait, Confusion, Headache, Numbness, Paresthesias, Seizure, Tingling, Tremors, Vertigo, Weakness Psychiatric: Reports: As per HPI. Denies: Anxiety, Auditory hallucinations, Depression, Homicidal thoughts, Suicidal thoughts, Visual hallucinations Hematological/Lymphatic: Reports: As per HPI. Denies: Anemia, Blood Clots, Easy bleeding, Easy bruising, Swollen glands Past Medical History - SOCIAL HISTORY Smoking Status: Current every day smoker Drug Use: Occasional Drug Use Detail:: Marijuana - RESPIRATORY Hx Respiratory Disorders: No - CARDIOVASCULAR Hx Cardio Disorders: No - NEURO Hx Neuro Disorders: No Comment:: siezure with detox - GI Hx GI Disorders: Yes Hx Reflux: Yes - Hx Genitourinary Disorders: No - ENDOCRINE Hx Endocrine Disorders: No - MUSCULOSKELETAL Hx Musculoskeletal Disorders: Yes Hx Back Injury: Yes - PSYCH Hx Psych Problems: Yes Hx Anxiety: Yes Comment:: alcohol withdrawl/detox prior - HEMATOLOGY/ONCOLOGY Hx Hematology/Oncology Disorders: No Family Medical History Hx Cancer: Grandparents *Cancer Comment: ALS Hx Diabetes: Father Physical Exam - General General Appearance: Alert, Oriented x3, Cooperative, No acute distress - Head Head exam: Normal inspection - Eye Eye exam: Normal appearance, PERRL Pupils: Normal accommodation - ENT ENT exam: Normal exam, Mucous membranes moist, Normal external ear exam, Normal orophraynx, TM's normal bilaterally Ear exam: Normal external inspection. negative: External canal tenderness Nasal Exam: Normal inspection. negative: Discharge, Sinus tenderness Mouth exam: Normal external inspection, Tongue normal Teeth exam: Normal inspection. negative: Dental caries Throat exam: Normal inspection. negative: Tonsillar erythema, Tonsillar exudate - Neck Neck exam: Normal inspection, Full ROM. negative: Tenderness - Respiratory Respiratory exam: Normal lung sounds bilaterally. negative: Respiratory distress - Cardiovascular Cardiovascular Exam: Regular rate, Normal rhythm, Normal heart sounds - GI/Abdominal GI/Abdominal exam: Soft, Normal bowel sounds. negative: Tenderness - Rectal Rectal exam: Deferred - exam: Deferred - Extremities Extremities exam: Normal inspection, Full ROM, Normal capillary refill. negative: Tenderness - Back Back exam: Reports: Normal inspection, Full ROM. Denies: Muscle spasm, Rash noted, Tenderness - Neurological Neurological exam: Alert, Normal gait, Oriented X3, Reflexes normal - Psychiatric Psychiatric exam: Normal affect, Normal mood - Skin Skin exam: Dry, Intact, Normal color, Warm Disposition Clinical Impression: Removal of staple Disposition: Home, Self-Care Condition: (1) Good Instructions: Stitches Removal (ED) Additional Instructions: follow up with family Forms: Patient Portal Access Quality - Quality Measures Quality Measures: N/A - Blood Pressure Screening Does Patient Have Any of the Following: No Blood Pressure Classification: Pre-Hypertensive BP Reading Systolic Measurement: 124 Diastolic Measurement: 75 Screening for High Blood Pressure: < Pre-Hypertensive BP, F/U Documented > [ G8950] Pre-Hypertensive Follow-up Interventions: Referral to alternative/primary care provider.
== END 2019-01-28 17:10 | disposition home or self-care (01) ==
LOC: ER 16:50
DX: Z48.02 Encounter for removal of sutures (principal)

== ENCOUNTER 2019-06-30 16:00 | Emergency (ER) | payer SELFPAY ==
--- NOTE | 2019-06-30 16:21 | Emergency Department Record ---
History of Present Illness - General Chief Complaint: Laceration(s) Stated Complaint: FINGER LACERATION Time Seen by Provider: 06/30/19 16:15 Source: Patient Mode of Arrival: Ambulatory Limitations: No limitations - History of Present Illness Initial Commments: 38 yo male presents with an injury to his left index finger on a sharp edge of a plate. No numbness or tingling. He has full ROM including extension. His last tetanus shot was less than a year. He is right handed. He just found out at the same time his best friend . He is anxious at this time. Onset/Timin -: Minutes(s) Extremity Location: Left: Hand Place: Home Context: Accidental Associated Symptoms: None Treatments Prior to Arrival: Bandage - [place] Coma Scale Eye Response: (4) Open spontaneously Motor Response: (6) Obeys commands Verbal Response: (5) Oriented [place] Total: 15 - Related Data Hx Tetanus Toxoid Vaccination: Yes Year of Tetanus Vaccination: 2019 Patient Tetanus UTD (within 5 yrs): Yes Previous Rx's Medication Instructions Recorded Cephalexin [Keflex] 500 mg PO TID #21 cap 06/30/19 Allergies Allergy/AdvReac Type Severity Reaction Status Date / Time No Known Drug Allergies Allergy Verified 06/30/19 16:05 Travel Screening - Travel/Exposure Within Last 30 Days Have you traveled within the last 30 days?: No - Travel/Exposure Within Last Year Have you traveled outside the [place] in the last year?: No - Additonal Travel Details Have you been exposed to anyone with a communicable illness?: No - Travel Symptoms Symptom Screening: None Review of Systems Constitutional: Denies: Chills, Fever, Malaise, Weakness Eyes: Denies: Eye discharge ENT: Denies: Congestion, Throat pain Respiratory: Denies: Cough Cardiovascular: Denies: Chest pain, Syncope Endocrine: Denies: Fatigue Gastrointestinal: Denies: Abdominal pain, Diarrhea, Nausea, Vomiting Genitourinary: Denies: Dysuria, Frequency, Hematuria Musculoskeletal: Reports: Other (Laceration). Denies: Arthralgia, Back pain, Felicita int swelling, Myalgia, Neck pain Skin: Reports: Other (Laceration). Denies: Bruising, Change in color Neurological: Denies: Numbness, Tingling, Weakness Psychiatric: Reports: Anxiety (Just found out his best friend ) Hematological/Lymphatic: Denies: Easy bleeding, Easy bruising Past Medical History - SOCIAL HISTORY Smoking Status: Current every day smoker Alcohol Use: None Drug Use: Heavy Drug Use Detail:: Marijuana - RESPIRATORY Hx Respiratory Disorders: No - CARDIOVASCULAR Hx Cardio Disorders: No - NEURO Hx Neuro Disorders: No Comment:: siezure with detox - GI Hx GI Disorders: Yes Hx Reflux: Yes - Hx Genitourinary Disorders: No - ENDOCRINE Hx Endocrine Disorders: No - MUSCULOSKELETAL Hx Musculoskeletal Disorders: Yes Hx Back Injury: Yes - PSYCH Hx Psych Problems: Yes Hx Anxiety: Yes Comment:: alcohol withdrawl/detox prior - HEMATOLOGY/ONCOLOGY Hx Hematology/Oncology Disorders: No Family Medical History Any Significant Family History?: Yes Hx Cancer: Grandparents *Cancer Comment: ALS Hx Diabetes: Father Physical Exam - General General Appearance: Alert, Oriented x3, Cooperative, No acute distress Limitations: No limitations - Head Head exam: Atraumatic, Normal inspection - Eye Eye exam: Normal appearance, PERRL. negative: Conjunctival injection, Scleral icterus - ENT ENT exam: Normal exam Ear exam: Normal external inspection Nasal Exam: Normal inspection Mouth exam: Normal external inspection - Neck Neck exam: Normal inspection - Cardiovascular Peripheral Pulses: 2+: Radial (L) - Extremities Extremities exam: negative: Normal inspection Image of Hand: 1 - jagged laceration, lateral portion of the extension tendon with partial injury, no FB, clean - Neurological Neurological exam: Alert, Normal gait, Oriented X3. negative: Motor sensory deficit - Psychiatric Psychiatric exam: Normal affect, Normal mood. negative: Agitated, Anxious - Skin Type of lesion: Laceration Course Vital Signs 06/30/19 16:06 Temperature 98.7 F Pulse Rate 92 H Respiratory 18 Rate Blood Pressure 134/80 Pulse Ox 98 - Reevaluation(s) Reevaluation #1: 06/30/19 Given the partial tendon injury a referral to Dr Staples of hand surgery for made The wound will be cleaned, closed, splinted and antibiotics given Procedure: finger laceration 1.5 cm laceration of the PIP of the left index finger Wound was cleaned and prepped in sterile fashion, no residual FB identified on examination. The partial extensor tendon was noted He has full firm extension without limitation The wound was copiously irrigated with NS Wound was anesthetized with mL of 1% Lidocaine plain with a digital block The laceration was repaired with Prolene 4-0 sutures in interrupted fashion. 5 sutures placed Patient tolerated the procedure well without complications. We discussed home care, reasons for immediate return if any concerns, and suture removal in 14 days He was dressed with a non stick dressing and splinted in extension Disposition Disposition: Discharge Clinical Impression: Finger laceration involving tendon Qualifiers: Encounter type: initial encounter Qualified Code(s): S61.219A - Laceration without foreign body of unspecified finger without damage to nail, initial encounter Disposition: Home, Self-Care Condition: (1) Good Instructions: Laceration (ED) Additional Instructions: Keep the finger dry and clean Use the splint to keep the finger from bending Call Dr Staples for follow up of the finger injury with the partial tendon injury Prescriptions: Cephalexin [Keflex] 500 mg PO TID #21 cap Referrals: LISANDRA STAPLES M.D. [MEDICAL DOCTOR] - Forms: Patient Portal Access Time of Disposition: 16:54 Quality - Quality Measures Quality Measures: N/A - Blood Pressure Screening Does Patient Have Any of the Following: No Blood Pressure Classification: Pre-Hypertensive BP Reading Systolic Measurement: 134 Diastolic Measurement: 80 Screening for High Blood Pressure: < Pre-Hypertensive BP, F/U Documented > [G8950] Pre-Hypertensive Follow-up Interventions: Referral to alternative/primary care provider.
[2019-06-30] MEDS ORDERED: ALPRAZOLAM 0.25 MG TABLET PO ONE (16:51)
[2019-06-30] MEDS ORDERED: CEPHALEXIN 500 MG CAPSULE PO STA (16:51)
== END 2019-06-30 17:24 | disposition home or self-care (01) ==
LOC: ER 16:00
DX: S61.211A Laceration without foreign body of left index finger without damage to nail, initial encounter (principal); S56.422A Laceration of extensor muscle, fascia and tendon of left index finger at forearm level, initial encounter; W26.8XXA Contact with other sharp object(s), not elsewhere classified, initial encounter; Y92.009 Unspecified place in unspecified non-institutional (private) residence as the place of occurrence of the external cause
CPT/HCPCS: 12001; 99284